=== PATIENT | female | born 1940 | race African-American/Black ===

== ENCOUNTER 2016-12-22 10:40 | Emergency (ER) | payer OTHER ==
[~2016-12-22] VITALS: Ht 172.7 cm; Wt 59.0 kg
[2016-12-22 16:04] LABS: Hematocrit 40.4 % (36.0-46.0); Hemoglobin 13.4 g/dL (12.2-16.2); Mean Corpuscular Hemoglobin 29.8 pg (28.0-32.0); Mean Corpuscular Hgb Conc. 33.2 g/dL (32.0-36.0); Mean Corpuscular Volume 89.8 fL (80.0-100.0); Mean Platelet Volume 7.9 fL (7.4-10.4); Platelet Count (auto) 392 10^3/uL (140-450); SUSPECT VIEW TRANSMISSION; White Blood Cell 10.1 10^3/uL (4.4-10.8)
[2016-12-22 16:10] VITALS: BP 122/65
[2016-12-22 16:12] LABS: Albumin 3.9 g/dL (3.4-5.0); BUN/Creatinine Ratio 19.4; Calcium 10.2 mg/dL (8.5-10.1); Potassium 3.9 mmol/L (3.5-5.1)
[2016-12-22 16:15] LABS: Bilirubin, Total 0.4 mg/dL (0.2-1.0); Total Protein 7.7 g/dL (6.4-8.2)
[2016-12-22 16:37] LABS: Metamyelocytes % 0; Myelocytes % 0; Promyelocytes % 0; Reactive Lymphocytes 0
[2016-12-22 17:15] LABS: Platelet Estimate Adequate
== END 2016-12-22 16:17 | disposition short-term general hospital (02) ==
LOC: ER 10:47
DX: S06.5X0A Traumatic subdural hemorrhage without loss of consciousness, initial encounter (principal); S01.81XA Laceration without foreign body of other part of head, initial encounter; W19.XXXA Unspecified fall, initial encounter; Y93.89 Activity, other specified; Y99.8 Other external cause status; Y92.89 Other specified places as the place of occurrence of the external cause
CPT/HCPCS: 12002; 36415; 70450; 80053; 85007; 85027

== ENCOUNTER 2017-11-22 11:41 | Inpatient (IN) | payer OTHER ==
[~2017-11-22] VITALS: Ht 162.6 cm; Wt 31.3 kg
[2017-11-22] MEDS ORDERED: SODIUM CHLORIDE 0.9% 1,000 ML IV ONE ×2 (11:50→15:37)
[2017-11-22] MEDS ORDERED: cefTRIAXone 1GM/10ml IVPUSH 10 ML IV ONE ×2 (12:00→18:15)
[2017-11-22] MEDS ORDERED: CLINDAMYCIN 300MG IV 50 ML IV ONE (12:00)
[2017-11-22 14:34] LABS: Lactic Acid w/Reflex 5.7 mmol/L (0.4-2.0)
[2017-11-22 16:20] LABS: INR 1.25 (0.9-1.15); Partial Thromboplastin Time 25.2 sec (22.64-33.71); Prothrombin Time 13.7 sec (9.37-12.3)
[2017-11-22 16:24] LABS: Basophils # (auto) 0 uL; Basophils % (auto) 0.1 % (0.0-2.0); Eosinophils # (auto) 0 uL; Hematocrit 36.7 % (36.0-46.0); Lymphocytes # (auto) 1.2 uL; Lymphocytes % (auto) 13.9 % (10.0-50.0); Mean Corpuscular Hemoglobin 30.5 pg (28.0-32.0); Mean Corpuscular Hgb Conc. 32.6 g/dL (32.0-36.0); Mean Corpuscular Volume 93.6 fL (80.0-100.0); Monocytes # (auto) 0.9 uL; Monocytes % (auto) 10.3 % (0.0-12.0); Neutrophils # (auto) 6.4 uL; Neutrophils % (auto) 75.7 % (37.0-80.0); Nucleated Red Blood Cells % 0.1 %; Platelet Count (auto) 222 10^3/uL (140-450); Red Blood Cells 3.92 10^6/uL (4.0-5.20); Red Cell Distribution Width 14.4 % (11.8-14.3); White Blood Cell 8.5 10^3/uL (4.4-10.8)
[2017-11-22 16:27] LABS: Albumin 2.5 g/dL (3.4-5.0); BUN/Creatinine Ratio 46.2; Bilirubin, Total 0.3 mg/dL (0.2-1.0); Calcium 7.8 mg/dL (8.5-10.1); Magnesium 2.4 mg/dL (1.6-2.6); Potassium 3.6 mmol/L (3.5-5.1); Total Protein 5.1 g/dL (6.4-8.2)
[2017-11-22] MEDS ORDERED: DEXTROSE (50%) 50ML SYRG IV PRN (18:15)
[2017-11-22] MEDS ORDERED: PANTOPRAZOLE 40 MG/10 ML VIAL IV ONE (18:15)
[2017-11-22] MEDS ORDERED: LORazepam 2MG/ML-1ML VIAL IV PRN (18:15)
[2017-11-22] MEDS ORDERED: TEMAZEPAM 15 MG CAP PO PRN (18:15)
[2017-11-22] MEDS ORDERED: MORPHINE SULFATE 10 MG/ML INJ 1ML SDV IV PRN (18:15)
[2017-11-22] MEDS ORDERED: ACETAMINOPHEN 500 MG TAB PO PRN (18:15)
[2017-11-22] MEDS ORDERED: PROMETHAZINE HCL 25 MG/ML 1ML IV PRN (18:15)
[2017-11-22] MEDS ORDERED: HYDROcodone-ACET 5/325MG TAB PO PRN (18:15)
[2017-11-22 18:32] LABS: Amylase 294 U/L (25-115); Lipase 1181 U/L (73-393)
[2017-11-22] MEDS: D5W/SOD CHL 0.45% 1,000 ML IV SCH (18:55)
[2017-11-22 19:10] LABS: Urine Bacteria MANY /hpf (None Seen); Urine Blood 2+ /uL (Negative); Urine Hyaline Cast FEW /lpf (0 - 2); Urine Mucus FEW (None Seen); Urine Specific Gravity 1.017 (1.001-1.035); Urine WBC 48 /hpf (0 - 5); Urine WBC Clumps PRESENT /hpf (None Seen)
[2017-11-22 20:38] VITALS: BP 107/63
[2017-11-22 21:30] VITALS: BP 107/63
[2017-11-22] MEDS: metroNIDAZOLE 500MG/100ML 100 ML IV SCH (23:40)
[2017-11-22] MEDS: ACCU-CHEK COMFORT CURVE STRIP VI SCH (23:40)
[2017-11-23 01:08] LABS: Hematocrit 45.1 % (36.0-46.0); Hemoglobin 14.8 g/dL (12.2-16.2)
[2017-11-23] MEDS: D5W/SOD CHL 0.45% 1,000 ML IV SCH ×3 (02:46→18:15)
[2017-11-23] MEDS: metroNIDAZOLE 500MG/100ML 100 ML IV SCH (05:39)
[2017-11-23] MEDS: ACCU-CHEK COMFORT CURVE STRIP VI SCH (05:39)
[2017-11-23 05:50] VITALS: BP 115/72
[2017-11-23 09:00] VITALS: BP 151/77
[2017-11-23] MEDS ORDERED: cefTRIAXone 1GM/10ml IVPUSH 10 ML IV SCH (09:00)
[2017-11-23] MEDS ORDERED: PANTOPRAZOLE 40 MG/10 ML VIAL IV SCH (10:00)
[2017-11-23 10:37] LABS: Basophils # (auto) 0 uL; Basophils % (auto) 0.1 % (0.0-2.0); Eosinophils # (auto) 0 uL; Eosinophils % (auto) 0.1 % (0.0-7.0); Hematocrit 43.9 % (36.0-46.0); Hemoglobin 14.4 g/dL (12.2-16.2); Lymphocytes # (auto) 0.9 uL; Lymphocytes % (auto) 8.8 % (10.0-50.0); Mean Corpuscular Hemoglobin 30.7 pg (28.0-32.0); Mean Corpuscular Hgb Conc. 32.8 g/dL (32.0-36.0); Mean Corpuscular Volume 93.7 fL (80.0-100.0); Monocytes # (auto) 0.3 uL; Monocytes % (auto) 3.5 % (0.0-12.0); Neutrophils # (auto) 8.8 uL; Neutrophils % (auto) 87.5 % (37.0-80.0); Nucleated Red Blood Cells % 0.1 %; Platelet Count (auto) 170 10^3/uL (140-450); Red Blood Cells 4.69 10^6/uL (4.0-5.20)
[2017-11-23 10:51] LABS: Albumin 2.3 g/dL (3.4-5.0); BUN/Creatinine Ratio 55.4; Calcium 7.6 mg/dL (8.5-10.1); Potassium 4.2 mmol/L (3.5-5.1)
[2017-11-23 10:53] LABS: Bilirubin, Total 0.2 mg/dL (0.2-1.0); Total Protein 5.2 g/dL (6.4-8.2)
[2017-11-23 13:00] VITALS: BP 121/62
[2017-11-23 16:00] VITALS: BP 140/73
[2017-11-23 18:18] VITALS: BP 140/73
== END 2017-11-23 19:00 | disposition hospice, home (50) | DRG 871 ==
LOC: ER 11:41 → EDBD 11:41 → OVERFLOW 11:42 → WEST WING 20:39
PROVIDERS: ADMIT Internal Medicine; ATTEND Nurse Practitioner Acute Care
PROC: 02HV33Z Insertion of Infusion Device into Superior Vena Cava, Percutaneous Approach (ICD-10-PCS; principal; 2017-11-22)
DX: A41.9 Sepsis, unspecified organism (principal); G93.41 Metabolic encephalopathy; N17.9 Acute kidney failure, unspecified; R53.2 Functional quadriplegia; E87.0 Hyperosmolality and hypernatremia; D62 Acute posthemorrhagic anemia; E87.1 Hypo-osmolality and hyponatremia; E86.0 Dehydration; G30.9 Alzheimer's disease, unspecified; F02.80 Dementia in other diseases classified elsewhere, unspecified severity, without behavioral disturbance, psychotic disturbance, mood disturbance, and anxiety; I10 Essential (primary) hypertension; Z66 Do not resuscitate; Z85.038 Personal history of other malignant neoplasm of large intestine
CPT/HCPCS: 36415; 36556; 51702; 70450; 71045; 74176; 80053; 81001; 82150; 82270; 82378; 82962; 83036; 83605; 83690; 83735; 83880; 84484; 85014; 85018; 85025; 85045; 85610; 85730; 87040; 93005; 96361; 96374; 96375; C9113; J3490